=== PATIENT | female | born 1975 | race Caucasian/White ===

== ENCOUNTER 2017-06-15 13:39 | Emergency (ER) | payer OTHER ==
[~2017-06-15] VITALS: Ht 170.2 cm; Wt 83.9 kg
[2017-06-15 13:48] VITALS: Ht 170.2 cm; Wt 83.9 kg
[2017-06-15 16:00] VITALS: BP 122/83
== END 2017-06-15 16:24 | disposition home or self-care (01) ==
LOC: ED 13:39
DX: J40 Bronchitis, not specified as acute or chronic (principal); J06.9 Acute upper respiratory infection, unspecified; J02.9 Acute pharyngitis, unspecified

== ENCOUNTER 2018-06-15 05:01 | Emergency (ER) | payer OTHER ==
[~2018-06-15] VITALS: Ht 152.4 cm; Wt 83.5 kg
[2018-06-15 05:12] VITALS: Ht 152.4 cm; Wt 83.5 kg
[2018-06-15 06:31] VITALS: BP 130/79
== END 2018-06-15 06:31 | disposition home or self-care (01) ==
LOC: ED 05:01
DX: H10.31 Unspecified acute conjunctivitis, right eye (principal)

== ENCOUNTER 2018-11-25 16:12 | Emergency (ER) | payer OTHER ==
[~2018-11-25] VITALS: Ht 152.4 cm; Wt 83.5 kg
[2018-11-25 16:15] VITALS: Ht 152.4 cm; Wt 83.5 kg
[2018-11-25 17:43] LABS: BASOPHIL % 0.4 % (0-2); PLATELET COUNT 317 x10^3mcL (130-400); RED CELL DISTRIBUTION WIDTH 13.8 % (11.5-14.5)
[2018-11-25 17:51] LABS: CALCIUM 8.3 mg/dL (8.5-10.1); CARBON DIOXIDE 29.7 mmol/L (21-32); CHLORIDE SERUM 102 mmol/L (98-107); CREATININE SERUM 0.7 mg/dL (0.6-1.0); GFR1 > 60 mL/min; GLUCOSE SERUM 131 mg/dL (74-106); POTASSIUM SERUM 4.1 mmol/L (3.5-5.1); SODIUM SERUM 138 mmol/L (136-145)
[2018-11-25 17:56] LABS: ALBUMIN 3.5 g/dL (3.4-5.0); ALKALINE PHOSPHATASE 89 U/L (46-116); ALT/SGPT 23 U/L (14-59); AST/SGOT 25 U/L (15-37); BILIRUBIN TOTAL 0.61 mg/dL (0.20-1.00); LIPASE 46 IU/L (73-393); TOTAL PROTEIN, SERUM 7.3 g/dL (6.4-8.2)
[2018-11-25 17:57] LABS: microscopic required? NO
[2018-11-25 18:06] LABS: UA SPECIFIC GRAVITY 1.015 (1.005-1.035); urine erythrocyte NEGATIVE (NEGATIVE)
[2018-11-25 20:54] VITALS: BP 142/89
== END 2018-11-25 20:55 | disposition home or self-care (01) ==
LOC: ED 16:12
PROVIDERS: Specialist
DX: M54.6 Pain in thoracic spine (principal); R42 Dizziness and giddiness
CPT/HCPCS: 36415; 72072; J1885

== ENCOUNTER 2018-11-26 23:58 | Emergency (ER) | payer OTHER ==
[~2018-11-26] VITALS: Ht 152.4 cm; Wt 83.0 kg
[2018-11-27 00:07] VITALS: Ht 152.4 cm; Wt 83.0 kg
[2018-11-27 00:34] LABS: BASOPHIL % 0.3 % (0-2); PLATELET COUNT 337 x10^3mcL (130-400); RED CELL DISTRIBUTION WIDTH 13.5 % (11.5-14.5)
[2018-11-27 00:42] LABS: CALCIUM 8.2 mg/dL (8.5-10.1); CARBON DIOXIDE 23.8 mmol/L (21-32); CHLORIDE SERUM 105 mmol/L (98-107); CREATININE SERUM 0.7 mg/dL (0.6-1.0); GFR1 > 60 mL/min; GLUCOSE SERUM 104 mg/dL (74-106); POTASSIUM SERUM 3.6 mmol/L (3.5-5.1); SODIUM SERUM 140 mmol/L (136-145)
[2018-11-27 00:55] LABS: ALBUMIN 3.3 g/dL (3.4-5.0); ALKALINE PHOSPHATASE 81 U/L (46-116); ALT/SGPT 24 U/L (14-59); AMYLASE 22 U/L (25-115); AST/SGOT 25 U/L (15-37); BILIRUBIN TOTAL 0.4 mg/dL (0.20-1.00); LIPASE 52 IU/L (73-393); TOTAL PROTEIN, SERUM 6.9 g/dL (6.4-8.2)
[2018-11-27 02:01] VITALS: BP 131/77
== END 2018-11-27 02:01 | disposition home or self-care (01) ==
LOC: ED 23:58
PROVIDERS: Specialist
DX: R10.84 Generalized abdominal pain (principal)
CPT/HCPCS: 36415

== ENCOUNTER 2019-07-08 12:42 | Emergency (ER) | payer OTHER ==
[~2019-07-08] VITALS: Ht 152.4 cm; Wt 88.5 kg
[2019-07-08 12:51] VITALS: Ht 152.4 cm; Wt 88.5 kg
[2019-07-08 14:57] LABS: BASOPHIL % 0.4 % (0-2); PLATELET COUNT 331 x10^3mcL (130-400); RED CELL DISTRIBUTION WIDTH 15.3 % (11.5-14.5)
[2019-07-08 15:00] LABS: CALCIUM 9.3 mg/dL (8.5-10.1); CARBON DIOXIDE 28.7 mmol/L (21-32); CHLORIDE SERUM 98 mmol/L (98-107); CREATININE SERUM 0.7 mg/dL (0.6-1.0); GFR1 > 60 mL/min; GLUCOSE SERUM 118 mg/dL (74-106); POTASSIUM SERUM 3.8 mmol/L (3.5-5.1); SODIUM SERUM 136 mmol/L (136-145)
[2019-07-08 15:05] LABS: ALBUMIN 3.4 g/dL (3.4-5.0); ALKALINE PHOSPHATASE 82 U/L (46-116); ALT/SGPT 24 U/L (14-59); AST/SGOT 17 U/L (15-37); BILIRUBIN TOTAL 0.5 mg/dL (0.20-1.00); TOTAL PROTEIN, SERUM 7.7 g/dL (6.4-8.2)
[2019-07-08 16:50] VITALS: BP 188/98
== END 2019-07-08 16:50 | disposition home or self-care (01) ==
LOC: ED 12:42
PROVIDERS: Emergency Medicine
DX: R51 Headache (principal); R11.10 Vomiting, unspecified; R10.13 Epigastric pain; H53.149 Visual discomfort, unspecified
CPT/HCPCS: 36415; J8597; Q0092; Q0162; Q0163

== ENCOUNTER 2019-12-26 07:01 | Emergency (ER) | payer OTHER, SELFPAY ==
[~2019-12-26] VITALS: Ht 162.6 cm; Wt 81.6 kg
[2019-12-26 07:03] VITALS: BP 129/86
== END 2019-12-26 07:58 | disposition home or self-care (01) ==
LOC: ED 07:01
DX: B34.9 Viral infection, unspecified (principal); K21.9 Gastro-esophageal reflux disease without esophagitis; Z20.828 Contact with and (suspected) exposure to other viral communicable diseases
CPT/HCPCS: U0003-CS

== ENCOUNTER 2020-03-14 16:53 | Emergency (ER) | payer OTHER, SELFPAY ==
[~2020-03-14] VITALS: Ht 152.4 cm; Wt 72.6 kg
[2020-03-14 16:55] VITALS: BP 151/79; Ht 152.4 cm; Wt 72.6 kg
== END 2020-03-14 18:37 | disposition home or self-care (01) ==
LOC: ED 16:53
DX: U07.1 COVID-19 (principal); B34.9 Viral infection, unspecified; K21.9 Gastro-esophageal reflux disease without esophagitis
CPT/HCPCS: U0003

== ENCOUNTER 2020-03-28 03:19 | Emergency (ER) | payer OTHER ==
[~2020-03-28] VITALS: Ht 152.4 cm; Wt 81.6 kg
[2020-03-28 04:21] VITALS: BP 129/861
== END 2020-03-28 04:21 | disposition home or self-care (01) ==
LOC: ED 03:19
DX: U07.1 COVID-19 (principal); R51.9 Headache, unspecified; K21.9 Gastro-esophageal reflux disease without esophagitis